=== PATIENT | female | born 1995 | race Caucasian/White ===

== ENCOUNTER 2017-01-05 10:19 | Emergency (ER) | payer OTHER ==
[2017-01-05 10:42] VITALS: BP 124/73; PULSE 86; RESP 18; TEMP 98.2; O2SAT 100
[2017-01-05] MEDS ORDERED: NEXI40CA PO (10:42)
[2017-01-05] MEDS ORDERED: SODIUM CHLOR 0.9% 1000 ML INJ 1,000 ML IV SCH (10:43)
[2017-01-05] MEDS ORDERED: ONDANSETRON HCL 4 MG/2 ML VIAL IVP ONE (10:45)
[2017-01-05] MEDS ORDERED: MORPHINE SULFATE 4 MG/ML INJ IV PUSH ONE ×2 (10:45→13:00)
[2017-01-05] MEDS ORDERED: SODIUM CHLORIDE 0.9% FLUSH 10 ML FLUSH IV FLUSH PRN (10:45)
[2017-01-05 10:47] VITALS: O2SAT 98
--- NOTE | 2017-01-05 10:50 | PD ---
HPI Chief Complaint: Abdominal pain Time Seen by Provider: 10:31 Travel History International Travel<30 days: No Contact w/Intl Traveler<30days: No History of Present Illness HPI 21yo F with no PMH presents to the ED with multiple complaints. Pt is mainly complaining of abdominal pain in right abdomen for 1 week. States it radiates to right upper back. Pain is constant but waxes and wanes and associated with NBNB vomiting, nausea and diarrhea. Pt also with midsternal chest pain that is sharp and thinks may be from the abdomen but unsure. Denies any fever, sob, dysuria, hematuria, vaginal bleeding or discharge. Pt is from [place] and had been seen by [facility] 2 times with negative work up for chest pain. States she never had a CT scan. States she had some bloody diarrhea last time and is suppose to have a colonoscopy but has not seen GI yet. Denies any drugs or family history of sudden cardiac . PFSH Social History Tobacco Use: No Allergies-Medications (Allergen,Severity, Reaction): Coded Allergies: No Known Allergies (Unverified , 01/05/17) Reported Meds & Prescriptions Reported Meds & Active Scripts Active Macrobid (Nitrofurantoin Monohydrate Macrocrystals) 100 Mg Capsule 100 Mg PO BID 7 Days Zofran Odt (Ondansetron Odt) 4 Mg Tab 4 Mg SL Q12HR PRN Tylenol (Acetaminophen) 325 Mg Tab 650 Mg PO Q6H PRN Reported Nexium (Esomeprazole DR) 40 Mg Capdr 40 Mg PO DAILY Review of Systems Except as stated in HPI: all other systems reviewed are Neg Physical Exam Narrative GENERAL: 21yo F in mild distress. SKIN: Focused skin assessment warm/dry. HEAD: Atraumatic. Normocephalic. EYES: Pupils equal and round. No scleral icterus. No injection or drainage. ENT: No nasal bleeding or discharge. Mucous membranes pink and moist. NECK: Trachea midline. No JVD. CARDIOVASCULAR: Regular rate and rhythm. No murmur appreciated. RESPIRATORY: No accessory muscle use. Clear to auscultation. Breath sounds equal bilaterally. GASTROINTESTINAL: Abdomen soft, +TTP RUQ, RLQ. No rebound tenderness or guarding. BACK: +CVA tenderness and ttp right scapula. MUSCULOSKELETAL: No obvious deformities. No clubbing. No cyanosis. No edema. NEUROLOGICAL: Awake and alert. No obvious cranial nerve deficits. Motor grossly within normal limits. Normal speech. PSYCHIATRIC: Appropriate mood and affect; insight and judgment normal. Data Data Last Documented VS Vital Signs Date Time Temp Pulse Resp B/P Pulse Ox O2 Delivery O2 Flow Rate FiO2 01/05/17 10:47 98 Room Air 01/05/17 10:42 98.2 86 18 124/73 Orders Complete Blood Count With Diff (01/05/17 10:43) Comprehensive Metabolic Panel (01/05/17 10:43) Lipase (01/05/17 10:43) Prothrombin Time / Inr (Pt) (01/05/17 10:43) Act Partial Throm Time (Ptt) (01/05/17 10:43) Urinalysis - C+S If Indicated (01/05/17 10:43) Ct Abd/Pel W Iv Contrast(Rout) (01/05/17 10:43) Iv Access Insert/Monitor (01/05/17 10:43) Ecg Monitoring (01/05/17 10:43) Oximetry (01/05/17 10:43) Morphine Inj (Morphine Inj) (01/05/17 10:45) Ondansetron Inj (Zofran Inj) (01/05/17 10:45) Sodium Chlor 0.9% 1000 Ml Inj (Ns 1000 M (01/05/17 10:43) Sodium Chloride 0.9% Flush (Ns Flush) (01/05/17 10:45) Ed Urine Pregnancytest Poc (01/05/17 10:43) Chest, Single Ap (01/05/17 ) Troponin I (01/05/17 10:43) Urine Culture (01/05/17 11:24) Iohexol 350 Inj (Omnipaque 350 Inj) (01/05/17 11:49) Morphine Inj (Morphine Inj) (01/05/17 13:00) C Diff Toxin Pcr (01/05/17 13:01) Mandatory Outpatient Referral (01/05/17 13:14) Electrocardiogram (01/05/17 10:28) Labs Laboratory Tests Test 01/05/17 01/05/17 01/05/17 10:54 11:24 13:59 White Blood Count 10.2 TH/MM3 Red Blood Count 4.87 MIL/MM3 Hemoglobin 13.5 GM/DL Hematocrit 40.3 % Mean Corpuscular Volume 82.6 FL Mean Corpuscular Hemoglobin 27.8 PG Mean Corpuscular Hemoglobin 33.6 % Concent Red Cell Distribution Width 13.5 % Platelet Count 256 TH/MM3 Mean Platelet Volume 9.1 FL Neutrophils (%) (Auto) 82.2 % Lymphocytes (%) (Auto) 12.1 % Monocytes (%) (Auto) 4.6 % Eosinophils (%) (Auto) 0.3 % Basophils (%) (Auto) 0.8 % Neutrophils # (Auto) 8.4 TH/MM3 Lymphocytes # (Auto) 1.2 TH/MM3 Monocytes # (Auto) 0.5 TH/MM3 Eosinophils # (Auto) 0.0 TH/MM3 Basophils # (Auto) 0.1 TH/MM3 CBC Comment DIFF FINAL Differential Comment Prothrombin Time 10.2 SEC Prothromb Time International 0.9 RATIO Ratio Activated Partial 27.3 SEC Thromboplast Time Sodium Level 140 MEQ/L Potassium Level 4.0 MEQ/L Chloride Level 109 MEQ/L Carbon Dioxide Level 21.3 MEQ/L Anion Gap 10 MEQ/L Blood Urea Nitrogen 8 MG/DL Creatinine 0.82 MG/DL Estimat Glomerular Filtration 87 ML/MIN Rate Random Glucose 97 MG/DL Calcium Level 9.0 MG/DL Total Bilirubin 0.4 MG/DL Aspartate Amino Transf 21 U/L (AST/SGOT) Alanine Aminotransferase 20 U/L (ALT/SGPT) Alkaline Phosphatase 84 U/L Troponin I LESS THAN 0.02 NG/ML Total Protein 7.6 GM/DL Albumin 3.3 GM/DL Lipase 146 U/L Urine Collection Type CLEAN CATCH Urine Color YELLOW Urine Turbidity CLEAR Urine pH 8.0 Urine Specific [place] 1.021 Urine Protein NEG mg/dL Urine Glucose (UA) NEG mg/dL Urine Ketones 40 mg/dL Urine Occult Blood NEG Urine Nitrite NEG Urine Bilirubin NEG Urine Leukocyte Esterase NEG Urine WBC 3-5 /hpf Urine Squamous Epithelial > 8 /hpf Cells Urine Amorphous Sediment FEW Urine Bacteria MOD /hpf Microscopic Urinalysis Comment CULTURE INDICATED Urine Collection Time 1124 Stool C. difficile Toxin (PCR) NEGATIVE Stl C. difficile Toxin PRESUMPTIVE Epiderm 027 NEGATIVE MDM Medical Decision Making Medical Screen Exam Complete: Yes Emergency Medical Condition: Yes Interpretation(s) EKG: NSR 88bpm. RAD. No ST segment elevation or depression. Laboratory Tests Test 01/05/17 01/05/17 10:54 11:24 White Blood Count 10.2 TH/MM3 (4.0-11.0) Red Blood Count 4.87 MIL/MM3 (4.00-5.30) Hemoglobin 13.5 GM/DL (11.6-15.3) Hematocrit 40.3 % (35.0-46.0) Mean Corpuscular Volume 82.6 FL (80.0-100.0) Mean Corpuscular Hemoglobin 27.8 PG (27.0-34.0) Mean Corpuscular Hemoglobin 33.6 % Concent (32.0-36.0) Red Cell Distribution Width 13.5 % (11.6-17.2) Platelet Count 256 TH/MM3 (150-450) Mean Platelet Volume 9.1 FL (7.0-11.0) Neutrophils (%) (Auto) 82.2 % (16.0-70.0) Lymphocytes (%) (Auto) 12.1 % (9.0-44.0) Monocytes (%) (Auto) 4.6 % (0.0-8.0) Eosinophils (%) (Auto) 0.3 % (0.0-4.0) Basophils (%) (Auto) 0.8 % (0.0-2.0) Neutrophils # (Auto) 8.4 TH/MM3 (1.8-7.7) Lymphocytes # (Auto) 1.2 TH/MM3 (1.0-4.8) Monocytes # (Auto) 0.5 TH/MM3 (0-0.9) Eosinophils # (Auto) 0.0 TH/MM3 (0-0.4) Basophils # (Auto) 0.1 TH/MM3 (0-0.2) CBC Comment DIFF FINAL Differential Comment Prothrombin Time 10.2 SEC (9.8-11.6) Prothromb Time International 0.9 RATIO Ratio Activated Partial 27.3 SEC Thromboplast Time (24.3-30.1) Sodium Level 140 MEQ/L (136-145) Potassium Level 4.0 MEQ/L (3.5-5.1) Chloride Level 109 MEQ/L (98-107) Carbon Dioxide Level 21.3 MEQ/L (21.0-32.0) Anion Gap 10 MEQ/L (5-15) Blood Urea Nitrogen 8 MG/DL (7-18) Creatinine 0.82 MG/DL (0.50-1.00) Estimat Glomerular Filtration 87 ML/MIN (>89) Rate Random Glucose 97 MG/DL (74-106) Calcium Level 9.0 MG/DL (8.5-10.1) Total Bilirubin 0.4 MG/DL (0.2-1.0) Aspartate Amino Transf 21 U/L (15-37) (AST/SGOT) Alanine Aminotransferase 20 U/L (10-53) (ALT/SGPT) Alkaline Phosphatase 84 U/L (45-117) Troponin I LESS THAN 0.02 NG/ML (0.02-0.05) Total Protein 7.6 GM/DL (6.4-8.2) Albumin 3.3 GM/DL (3.4-5.0) Lipase 146 U/L (73-393) Urine Collection Type CLEAN CATCH Urine Color YELLOW (YELLW/STRAW) Urine Turbidity CLEAR (CLEAR) Urine pH 8.0 (5.0-8.5) Urine Specific [place] 1.021 (1.002-1.035) Urine Protein NEG mg/dL (NEG-TRACE) Urine Glucose (UA) NEG mg/dL (NEG) Urine Ketones 40 mg/dL (NEG) Urine Occult Blood NEG (NEG) Urine Nitrite NEG (NEG) Urine Bilirubin NEG (NEG) Urine Leukocyte Esterase NEG (NEG) Urine WBC 3-5 /hpf (0-5) Urine Squamous Epithelial > 8 /hpf (0-5) Cells Urine Amorphous Sediment FEW Urine Bacteria MOD /hpf (NONE) Microscopic Urinalysis Comment CULTURE INDICATED Urine Collection Time 1124 Last Impressions Abdomen/Pelvis CT 01/05/17 1043 Signed Impressions: Service Date/Time: Thursday, January 05, 2017 11:32 - CONCLUSION: No abnormality is identified to explain the clinical symptoms. No acute finding is visualized. Augustine Self MD Chest X-Ray 01/05/17 0000 Signed Impressions: Service Date/Time: Thursday, January 05, 2017 11:35 - CONCLUSION: No acute cardiopulmonary abnormality is identified. Augustine Self MD Differential Diagnosis Acute cholecystitis vs. acute appendicitis vs. inflammatory bowel disease vs. anxiety vs. musculoskeletal pain vs. pyelonephritis Narrative Course 21yo F with multiple complaints today. Pt has been having abdominal pain, vomiting and diarrhea for 1 week. Labs reviewed, no leukocytosis. Normal liver enzymes. Normal bilirubin. Normal lipase. UA showed moderate bacteria with >8 squamous epithelial cells. Feels that it is likely contamination but will cover with antibiotics. Urine negative. CTa/ p showed no abnormality. No acute finding is visualized. Pt also with very atypical chest pain. Troponin negative. CXR negative. Do not feel that it is cardiac. VS unremarkable. Pt given zofran, and morphine with improvement of pain. Pt states she has no insurance and has no way of following up with GI. Will do mandatory referral for GI. Pt also now states her dad had cdiff recently so stool sent for cdiff. Diagnosis Primary Impression: UTI (urinary tract infection) Qualified Code: N39.0 - Urinary tract infection without hematuria, site unspecified Referrals: Indigo Wesley MD Patient Instructions: General Instructions Departure Forms: Tests/Procedures Additional Instructions: Please wait for manager rn case to call for GI appointment for mandatory referral. Return to the ED if symptoms worsen. Med/Other Pt SpecificInfo: Prescription(s) given Scripts Nitrofurantoin Monohydrate Macrocrystals (Macrobid)100 Mg [id number] Mg PO BID 7 Days Ref 0 Prov:Maribel Childers DO 01/05/17 Ondansetron Odt (Zofran Odt)4 Mg Tab4 Mg SL Q12HR PRN (Nausea/Vomiting) #7 TAB Ref 0 Prov:Maribel Childers DO 01/05/17 Acetaminophen (Tylenol)325 Mg [id number] Mg PO Q6H PRN (PAIN SCALE 1 TO 4) #20 TAB Ref 0 Prov:Maribel Childers DO 01/05/17 Disposition: 01 DISCHARGE HOME Condition: Stable Maribel Childers DO Jan 05, 2017 10:50
[2017-01-05 11:03] LABS: AUTOMATED NEUTROPHIL # 8.4 TH/MM3 (1.8-7.7); BASOPHIL # 0.1 TH/MM3 (0-0.2); BASOPHIL % 0.8 % (0.0-2.0); EOSINOPHIL % 0.3 % (0.0-4.0); HEMATOCRIT 40.3 % (35.0-46.0); LYMPH % 12.1 % (9.0-44.0); LYMPHOCYTE # 1.2 TH/MM3 (1.0-4.8); MEAN CELL VOLUME 82.6 FL (80.0-100.0); MEAN CORPUSCULAR HEMOGLOBIN 27.8 PG (27.0-34.0); MEAN CORPUSCULAR HGB CONC 33.6 % (32.0-36.0); MONO % 4.6 % (0.0-8.0); NEUT % 82.2 % (16.0-70.0); PLATELET COUNT 256 TH/MM3 (150-450); RED BLOOD COUNT 4.87 MIL/MM3 (4.00-5.30); RED CELL DISTRIBUTION WIDTH 13.5 % (11.6-17.2); WHITE BLOOD COUNT 10.2 TH/MM3 (4.0-11.0)
[2017-01-05 11:04] LABS: HEMO FLAGS DIFF FINAL
[2017-01-05 11:13] LABS: CHLORIDE 109 MEQ/L (98-107); SODIUM (NA) 140 MEQ/L (136-145)
[2017-01-05 11:17] LABS: ANION GAP 10 MEQ/L (5-15); BICARBONATE 21.3 MEQ/L (21.0-32.0); BLOOD UREA NITROGEN 8 MG/DL (7-18)
[2017-01-05 11:18] LABS: APTT (PATIENT) 27.3 SEC (24.3-30.1); INTERNATIONAL NORMALIZED RATIO 0.9 RATIO; PROTHROMBIN TIME - PATIENT 10.2 SEC (9.8-11.6)
[2017-01-05 11:20] LABS: ALT (GPT) 20 U/L (10-53); AST (GOT) 21 U/L (15-37); GLOMERULAR FILTRATION RATE 87 ML/MIN (>89)
[2017-01-05 11:21] LABS: TOTAL BILIRUBIN ADULT 0.4 MG/DL (0.2-1.0)
[2017-01-05 11:22] LABS: ALKALINE PHOSPHATASE 84 U/L (45-117)
[2017-01-05 11:29] LABS: BLOOD, URINE NEG (NEG); GLUCOSE,URINE NEG (NEG); KETONE, URINE 40 mg/dL (NEG); NITRITE,URINE NEG (NEG)
[2017-01-05 11:32] LABS: METHOD OF COLLECTION CLEAN CATCH; URINE COLOR YELLOW (YELLW/STRAW)
[2017-01-05 11:33] LABS: BACTERIA, URINE MOD /hpf; COMMENT (UR) CULTURE INDICATED; COMMENT2 (UR) MUCOUS PRESENT; CULTURE IF INDICATED CULTURE INDICATED; SQUAMOUS EPITHELIAL CELL URINE > 8 /hpf (0-5)
[2017-01-05] MEDS ORDERED: IOHEXOL 350 MG/ML 10 ML VIAL (for RAD DIAG) IV ONE (11:49)
--- NOTE | 2017-01-05 11:58 | RADRPT ---
EXAM DATE/TIME: 01/05/2017 11:35 [facility] COMPARISON: No previous studies available for comparison. INDICATIONS : Right chest/epigastric pain. MEDICAL HISTORY : Gastroesophageal reflux disease. SURGICAL HISTORY : None. ENCOUNTER: Initial ACUITY: 1 day PAIN SCORE: 7/10 LOCATION: Right chest FINDINGS: Portable AP view of the chest demonstrates a normal-sized cardiac silhouette. No effusion, consolidat ion, or pneumothorax is visualized. The bones and soft tissues demonstrate no acute abnormality. CONCLUSION: No acute cardiopulmonary abnormality is identified. Augustine Self MD on January 05, 2017 at 11:55 Board Certified Radiologist. This report was verified electronically.
--- NOTE | 2017-01-05 12:07 | RADRPT ---
EXAM DATE/TIME: 01/05/2017 11:32 [facility] COMPARISON: No previous studies available for comparison. INDICATIONS : Right sided abdominal pain. IV CONTRAST: 95 cc Omnipaque 350 (iohexol) IV ORAL CONTRAST: No oral contrast ingested. RADIATION DOSE: 6.90 CTDIvol (mGy) MEDICAL HISTORY : Gastroesophageal reflux disease. SURGICAL HISTORY : None. ENCOUNTER: Initial ACUITY: 2 weeks PAIN SCALE: 7/10 LOCATION: Right abdomen TECHNIQUE: Volumetric scanning of the abdomen and pelvis was performed. Using automated exposure control and ad justment of the mA and/or kV according to patient size, radiation dose was kept as low as reasonably achievable to obtain optimal diagnostic quality images. DICOM format image data is available electro nically for review and comparison. FINDINGS: LOWER LUNGS: The visualized lower lungs are clear. LIVER: Homogeneous density without lesion. There is no dilation of the biliary tree. No calcified gallston es. SPLEEN: Normal size without lesion. PANCREAS: Within normal limits. KIDNEYS: Normal in size and shape. There is no mass, stone or hydronephrosis. ADRENAL GLANDS: Within normal limits. VASCULAR: There is no aortic aneurysm. BOWEL/MESENTERY: The stomach, small bowel, and colon demonstrate no acute abnormality. There is no free intraperitone al air or fluid. Appendix and terminal ileum are normal. ABDOMINAL WALL: Within normal limits. RETROPERITONEUM: There is no lymphadenopathy. BLADDER: No wall thickening or mass. REPRODUCTIVE: Within normal limits. INGUINAL: There is no lymphadenopathy or hernia. MUSCULOSKELETAL: Within normal limits. CONCLUSION: No abnormality is identified to explain the clinical symptoms. No acute finding is visualized. Augustine Self MD on January 05, 2017 at 12:02 Board Certified Radiologist. This report was verified electronically.
[2017-01-05] MEDS ORDERED: ZOFR4TAB3 SL (13:08)
[2017-01-05] MEDS ORDERED: TYLE325T PO (13:08)
[2017-01-05] MEDS ORDERED: MACR100C2 PO (13:08)
[2017-01-05 19:46] LABS: C. DIFF EPI 027 PRESUMPTIVE NEGATIVE (NEGATIVE); C. DIFF TOXIN PCR NEGATIVE (NEGATIVE)
--- NOTE | 2017-01-06 11:44 | EKG ---
Date Performed: 01/05/2017 Time Performed: 10:28:59 PTAGE: 21 years EKG: Sinus rhythm BORDERLINE RIGHT AXIS DEVIATION BORDERLINE ECG NO PREVIOUS TRACING DOCTOR: David Hawthorne Interpretating Date/Time 01/06/2017 11:43:05
== END 2017-01-05 14:12 | disposition home or self-care (01) ==
LOC: PHED 10:19
DX: N39.0 Urinary tract infection, site not specified (principal); B96.89 Other specified bacterial agents as the cause of diseases classified elsewhere; R94.31 Abnormal electrocardiogram [ECG] [EKG]
CPT/HCPCS: 71010; 74177; 80053; 81001; 83690; 84484; 84703; 85025; 85610; 85730; 87086; 87493; 93005; 96361; 96374; 96375; 99285; J2270; J2405; J7030; Q9967